=== PATIENT | male | born 1960 | race Caucasian/White ===

== ENCOUNTER → 2020-08-17 | Outpatient (CLI) | payer OTHER ==
[~2020-08-17] MED LIST: COZAAR50 MG
== END | disposition home or self-care (01) ==
LOC: PPH VACUNA
DX: Z23 Encounter for immunization (principal)

== ENCOUNTER 2020-09-07 16:32 | Outpatient (CLI) | payer OTHER | END 2020-09-07 16:33 | disposition home or self-care (01) | LOC: PPH VACUNA 16:32 | DX: Z23 Encounter for immunization (principal) ==